=== PATIENT | male | born 1965 | race Caucasian/White ===

== ENCOUNTER 2022-02-03 14:32 | Emergency (ER) | payer OTHER ==
[2022-02-03] MEDS ORDERED: HYDROmorphone 1 MG/ML Syringe IVPUSH ONE ×2 (14:35→17:00)
[2022-02-03 14:52] LABS: CHLORIDE,CL 104 mmol/L (98-107); SODIUM,NA 141 mmol/L (136-145)
[2022-02-03 14:56] LABS: ANION GAP 12.8 mmol/L (5-15); ESTIMATED GFR 88 mL/min (>=60)
[2022-02-03 14:59] LABS: PTT,PARTIAL THROMBOPLSTIN TIME 20.7 SEC (20.5-30.9)
[2022-02-03] MEDS ORDERED: Lidocaine 1% 5 ML VIAL INJECT ONE (15:09)
== END 2022-02-03 17:35 | disposition short-term general hospital (02) ==
LOC: VM.ED 14:32
DX: S82.62XA Displaced fracture of lateral malleolus of left fibula, initial encounter for closed fracture (principal); S51.011A Laceration without foreign body of right elbow, initial encounter; S50.812A Abrasion of left forearm, initial encounter; S50.811A Abrasion of right forearm, initial encounter; V22.4XXA Motorcycle driver injured in collision with two- or three-wheeled motor vehicle in traffic accident, initial encounter; Y92.410 Unspecified street and highway as the place of occurrence of the external cause
CPT/HCPCS: 12002; 36415; 70450; 71045; 72125; 72170; 73560-LT; 73610-LT; 73610-RT; 80048; 85025; 85610; 85730; 96374; 96376; 99284; 99285-25; J1170